=== PATIENT | male | born 1945 | race African-American/Black ===

== ENCOUNTER 2016-09-18 07:48 | Inpatient (IN) | payer OTHER, MEDICARE ==
[~2016-09-18] VITALS: Ht 180.3 cm; Wt 106.7 kg
--- NOTE | ~2016-09-18 | HC ---
[facility] [place] [address] CONSULTATION Name: MGVIDAL Room #: 446-P [facility] IN M.R.#: [id number] Admission: 09/18/16 Attend Phys: Jacob Schafer MD Discharge: 09/19/16 Date of : 47 Report #: [id number] THIS REPORT FOR: //name// CC: Lefty Bryant REASON FOR CONSULTATION: History of lymphoma. 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 At that time, he was treated with R-CHOP chemotherapy, then RICE chemotherapy, he had an incomplete remission. He then had a stem cell transplant on September 2008. After progression, he was on a CALGB study #[id number] with Revlimid for a year. He had actually been in remission for a number of years, unfortunately recently he had progression and he began Revlimid and rituximab standard therapy now in July 2016. Note that this is no longer investigational. Recently, the patient had been having hypokalemia. Unfortunately, Saturday night, Saturday morning, he developed abdominal pain, came to the Emergency Room and CAT scan shows mural thickening consistent with colitis. Note that the patient had a temperature last night to 101.6. He has currently been begun on antibiotics and is on ____. The patient has required some doses of morphine and Dilaudid and has been a little bit at odds over some issues with the nursing staff with regards to ice chips, dietary status and pain meds. Note that he reports that they talked to the patient access services representative. The patient denies previous to this he had not had any fevers. He had some abdominal discomfort periodically, but nothing severe, no reflux, no significant weight changes, lymph nodes have been decreasing, no new arm or leg swelling, no skin rash. PAST MEDICAL HISTORY: Notable for the lymphoma as mentioned above. Also, history of osteoporosis with vertebroplasty, hypertension, lipid abnormality, arthroscopic knee surgery in the past, BPH in the past, elevated PSA in the past and also a throat cyst. ALLERGIES: He has had trouble with KEFLEX, PENICILLIN, SULFA, AND LISINOPRIL in the past. SOCIAL HISTORY: He used to work at [employer]. He has been on disability from his osteoporosis, compression fracture. Used to smoke half pack a day, occasional marijuana past. MEDICATIONS: Recently as an outpatient had included aspirin 81 mg; calcium carbonate daily; Zyrtec 10 daily; vitamin D3 2000 units daily; doxazosin 4 mg daily; finasteride 5 mg daily; gabapentin 100 mg 3 times daily; guaifenesin 600 mg daily; hydrochlorothiazide 25 daily; hydrocodone p.r.n.; Revlimid had been on [address] [address] CONSULTATION Name: VIDAL HOLLIDAY Room #: 446-P [facility] IN M.R.#: [id number] Admission: 09/18/16 Attend Phys: Jacob Schafer MD Discharge: 09/19/16 Date of : 47 Report #: [id number] 20 mg days 1- ____, this will be held now. Also lorazepam 1 mg twice daily, magnesium oxide as needed, potassium chloride 10 mEq 3 times daily, simvastatin 10 mg at bedtime, valacyclovir 500 mg daily. Here in the hospital, his medications currently include pantoprazole 40 b.i.d. IV, metronidazole q. 8, ciprofloxacin b.i.d., hydromorphone p.r.n., MiraLax daily, nitroglycerin 0.4 mg p.r.n., Zofran p.r.n., IV fluids. PHYSICAL EXAMINATION: GENERAL: The patient appears his stated age. VITAL SIGNS: His height is 5 feet 11 inches. Weight is 235.2 pounds, that is also 180.3 cm or 106.7 kilograms. Blood pressure recently 112/54 and O2 sat of 94%, respirations 20, pulse 81. Temperature currently 98.9 last night, at 4:00 in the afternoon yesterday was 101.6. MOOD: He is somewhat frustrated and a little bit fuzzy in details and maybe related to his medications, but he can be a little bit cantankerous at times. NEUROLOGIC: Face is symmetrical. He is moving extremities. LUNGS: Clear with symmetric without rhonchi or rales. HEART: Regular rate. LYMPHATICS: No enlarged lymph nodes or maybe a slight smudge underneath his right axilla. ABDOMEN: Slightly obese, slightly tender in the specially lower quadrants. Note, the patient has described some lower abdominal pain that move from the left to the right, it may be slightly better and has been hidden better with his narcotics. EXTREMITIES: Without clubbing, cyanosis or edema. LABORATORY DATA: Electrolyte, note that his white count is 3.6 with an AST of 2.7 thousand, platelets 124, hemoglobin 13.4. Liver functions normal. Potassium 3.1. ASSESSMENT AND PLAN: 1. Recurrent, but not responding follicular lymphoma. We will hold Revlimid until the patient is better. 2. Hypokalemia, replaced. 3. Colitis with CAT scan and belly pain and fever. I agree with antibiotics. We will defer oral hydration and nutrition and ice chips to others. 4. Prostate difficulties. Defer finasteride, Proscar and Flomax to others. 5. Hypertension. Defer hydrochlorothiazide to others. 6. Neuropathy. Gabapentin. We will follow with you. <ELECTRONICALLY SIGNED> By: Michael Bryant MD 09/20/16 0839 [id number] 0900 Michael Bryant MD /nt
[~2016-09-18 07:48] MED LIST: ACTONEL PO; ADULT LOW DOSE81 MG PO; ATIVAN1 MG PO; CARDURA4 MG PO; FINASTERIDE5 MG PO; HYDROCHLOROTHIA25 M1 PO; HYDROXYZINE PAM25 M1 PO; KLOR-CON 1010 MEQ PO; OXYCODONE HCL5 M1 PO; RANITIDINE 150150 MG PO; REVLIMID5 MG PO; VALTREX 500 MG500 MG PO; VITAMIN D1000 UNI1 PO; ZOCOR 10 MG TAB10 MG PO
[2016-09-18 07:54] VITALS: BP 152/68
[2016-09-18 08:35] LABS: ABSOLUTE NEUTROPHILS 2.7 thou/uL (1.4-8.2); BASOPHILS 1.1 % (0.0-2.0); EOSINOPHILS 3.7 % (0.0-3.0); HEMATOCRIT 38.7 % (42.0-52.0); HEMOGLOBIN 13.4 gm/dL (14.0-18.0); LYMPHOCYTES 16.2 % (24.0-44.0); MCH 33.2 pg (26.0-34.0); MCHC 34.6 g/dL (28.0-37.0); MCV 95.8 fL (80.0-100.0); MONOCYTES 4.3 % (1.0-8.0); PLATELET COUNT 124 thou/uL (150-400); POLYS 74.7 % (36.0-66.0); RBC 4.04 mil/uL (4.50-6.00); RDW 13.5 % (10.5-14.5); WBC 3.6 thou/uL (4.0-11.0)
[2016-09-18 08:36] LABS: MANUAL DIFF NO
[2016-09-18 08:38] LABS: ANION GAP 7 mmol/L (7-16); BUN 8 mg/dL (7-18); CALCIUM 9.6 mg/dL (8.5-10.1); CHLORIDE 102 mmol/L (98-107); CO2 29 mmol/L (21-32); CREATININE 1.1 mg/dL (0.7-1.3); GLUCOSE 127 mg/dL (74-106); POTASSIUM 3.1 mmol/L (3.5-5.1); SODIUM 138 mmol/L (136-145)
[2016-09-18 08:46] LABS: ALBUMIN 3.5 g/dL (3.4-5.0); ALKALINE PHOSPHATASE 84 U/L (46-116); SGOT 24 U/L (15-37); SGPT 23 U/L (30-65); TOTAL BILIRUBIN 0.8 mg/dL (<0.1-1.0); TOTAL PROTEIN 7.7 g/dL (6.4-8.2); TROPONIN-I < 0.04 ng/mL (<0.04-0.07)
[2016-09-18] MEDS ORDERED: CALCIUM 500 +1 EAC5 PO (08:48)
[2016-09-18] MEDS ORDERED: ZYRTEC10 M5 PO (08:49)
[2016-09-18] MEDS ORDERED: GABAPENTIN 100100 MG PO (08:49)
[2016-09-18] MEDS ORDERED: MUCINEX TA600 MG/TA2 PO (08:50)
[2016-09-18] MEDS ORDERED: HYDROCODON-ACE1 EAC7 PO (08:54)
[2016-09-18] MEDS ORDERED: REVLIMID20 MG PO (08:55)
[2016-09-18 12:45] VITALS: BP 105/59
[2016-09-18 16:00] VITALS: BP 125/55
[2016-09-18 20:40] VITALS: BP 108/68
[2016-09-19 04:52] VITALS: BP 107/52
[2016-09-19 08:00] VITALS: BP 112/54
[2016-09-19 16:00] VITALS: BP 111/61
== END 2016-09-19 19:00 | disposition left against medical advice (07) | DRG 392 ==
LOC: ER 07:48 → 4S 11:40 → EROBS 11:40 → 4S 12:36
PROVIDERS: Emergency Medicine
DX: K52.9 Noninfective gastroenteritis and colitis, unspecified (principal); C85.90 Non-Hodgkin lymphoma, unspecified, unspecified site; Z94.84 Stem cells transplant status; M81.0 Age-related osteoporosis without current pathological fracture; I10 Essential (primary) hypertension; E78.5 Hyperlipidemia, unspecified; N40.0 Benign prostatic hyperplasia without lower urinary tract symptoms; F17.210 Nicotine dependence, cigarettes, uncomplicated; E87.6 Hypokalemia; G62.9 Polyneuropathy, unspecified; D69.6 Thrombocytopenia, unspecified; Z79.899 Other long term (current) drug therapy; Z86.711 Personal history of pulmonary embolism; Z88.0 Allergy status to penicillin; Z88.2 Allergy status to sulfonamides; Z88.6 Allergy status to analgesic agent; Z79.82 Long term (current) use of aspirin
CPT/HCPCS: 10102